=== PATIENT | female | born 1980 | race Caucasian/White ===

== ENCOUNTER 2019-06-12 14:12 | Emergency (ER) | payer OTHER ==
[~2019-06-12] VITALS: Ht 167.6 cm; Wt 98.0 kg
[2019-06-12 14:37] VITALS: Ht 167.6 cm; Wt 98.0 kg
[2019-06-12 16:40] LABS: BASOPHIL % 0.6 % (0-2)
[2019-06-12 16:43] LABS: PLATELET COUNT 448 x10^3mcL (130-400); RED CELL DISTRIBUTION WIDTH 18.9 % (11.5-14.5)
[2019-06-12 16:50] LABS: CALCIUM 8.3 mg/dL (8.5-10.1); CARBON DIOXIDE 21.6 mmol/L (21-32); CHLORIDE SERUM 106 mmol/L (98-107); CREATININE SERUM 0.9 mg/dL (0.6-1.0); GFR1 > 60 mL/min; GLUCOSE SERUM 103 mg/dL (74-106); POTASSIUM SERUM 3.3 mmol/L (3.5-5.1); SODIUM SERUM 141 mmol/L (136-145)
[2019-06-12 16:55] LABS: ALBUMIN 3.5 g/dL (3.4-5.0); ALKALINE PHOSPHATASE 96 U/L (46-116); ALT/SGPT 38 U/L (14-59); AMYLASE 38 U/L (25-115); AST/SGOT 17 U/L (15-37); BILIRUBIN TOTAL 0.2 mg/dL (0.20-1.00); LIPASE 148 IU/L (73-393); TOTAL PROTEIN, SERUM 7.6 g/dL (6.4-8.2)
[2019-06-12 21:39] VITALS: BP 134/87
== END 2019-06-12 21:39 | disposition home or self-care (01) ==
LOC: EDBD 14:12 → ED 14:12
PROVIDERS: Specialist
DX: E87.6 Hypokalemia (principal); D72.829 Elevated white blood cell count, unspecified; R10.813 Right lower quadrant abdominal tenderness
CPT/HCPCS: J1885; J2405; J3010